=== PATIENT | female | born 1960 | race Caucasian/White ===

== ENCOUNTER → 2017-10-22 | Outpatient (CLI) | payer BC ==
--- NOTE | 2017-10-23 12:01 | EXERCISE STRESS ECHO ---
*NOTICE TO RECEIVING [employer] This information is strictly Confidential and protected under [place] law. [place] law prohibits you from making any further disclosure of this information unless further disclosure is expressly permitted by the written consent of the person to whom it pertains or is authorized by law. A general authorization for the release of medical or other information is not sufficient for this purpose. Hospital accepts no responsibility if the information is made available to any other person, INCLUDING THE PATIENT. Interpretation Summary * Name: LISA ROCK Study Date: 10/22/2017 10:03 AM BP: 146/61 mmHg * Patient Location: [facility] HR: 63 * : 1960 (M/d/yyyy) Gender: Female Height: 63 in * Age: 56 yrs Ethnicity: [place] Weight: 163 lb * Ordering Physician: William Sam * Referring Physician: William Sam * Performed By: Lottie Rubio RDCS * * Reason For Study: CHEST PAIN * BSA: 1.8 m2 * The study was technically adequate. * There is no comparison study available. * The stress echocardiogram is negative for inducible ischemia. * Exercise capacity is above average. * -- Conclusions -- * Ejection Fraction = 55-60%. * Resting wall motion: Normal. Stress wall motion: Appropriate increase in Left ventricular systolic function and decrease in cavity size. No stress induced segmental wall motion abnormalities. * There is trace mitral regurgitation. * There is trace tricuspid regurgitation. Procedure Details * ECHOEX, CPT #[id number] * ECHO DOPPLER, CPT #[id number] * ECHO COLOR FLOW, CPT #[id number] Left Ventricle * The left ventricle is normal in size. * There is normal left ventricular wall thickness. * Ejection Fraction = 55-60%. * Left ventricular systolic function is normal. * Resting wall motion: Normal. Stress wall motion: Appropriate increase in Left ventricular systolic function and decrease in cavity size. No stress induced segmental wall motion abnormalities. * The left ventricular ejection fraction increases normally with stress. The left ventricular end-systolic cavity size reduces post-stress (normal response). The left ventricular wall motion with stress is normal. Right Ventricle * The right ventricle is normal in size and function. Atria * The left atrial size is normal. * Right atrial size is normal. * No ASD detected; PFO is not assessed. Mitral Valve * The mitral valve is normal. * There is no mitral valve stenosis. * There is trace mitral regurgitation. Tricuspid Valve * The tricuspid valve is normal. * There is no tricuspid stenosis. * There is trace tricuspid regurgitation. Aortic Valve * The aortic valve is trileaflet. * No hemodynamically significant valvular aortic stenosis. * No aortic regurgitation is present. Pulmonic Valve * The pulmonic valve is not well visualized. Great Vessels * The aortic root is normal size. * Normal IVC. Pericardium * There is no pericardial effusion. Stress Parameters * The baseline ECG displays abnormal ST segments in the inferior leads. * Stress ECG: Equivocal inferior ST changes secondary to baseline abnormality. * The stress portion of this study was personally supervised by the undersigned interpreting physician. * Rest heart rate was '63' BPM. * Rest blood pressure was '146/61' * Maximum heart rate achieved was 164 bpm. * Maximum heart rate was 101 % of maximum age-predicted heart rate. * Maximum blood pressure was '176/90' * Total exercise time was '10:00' * Maximum exercise MET level achieved was '11.70' METS * Maximum treadmill speed was '4.20' miles per hour. * Maximum treadmill elevation was '16.00'% grade. * Exercise was terminated due to 'ACHIEVING TARGET HR' * Normal blood pressure response to exercise. Left Ventricular Diastolic Function * Pulse wave TDI of the anterior and posterior mitral annulas demonstrates normal LV relaxation MMode 2D Measurements and Calculations IVSd 0.91 cm IVSs 1.4 cm LVIDd 4.6 cm LVIDs 3.0 cm LVPWd 0.87 cm LVPWs 1.5 cm IVS/LVPW 1.0 FS 33.5 % EDV(Teich) 96.7 ml ESV(Teich) 36.4 ml EF(Teich) 62.3 % EDV(cubed) 96.5 ml ESV(cubed) 28.3 ml EF(cubed) 70.6 % % IVS thick 54.1 % % LVPW thick 68.6 % LV mass(C)d 135.8 grams LV mass(C)dI 76.6 grams/m\S\2 LV mass(C)s 150.7 grams LV mass(C)sI 85.0 grams/m\S\2 SV(Teich) 60.3 ml SI(Teich) 34.0 ml/m\S\2 SV(cubed) 68.2 ml SI(cubed) 38.4 ml/m\S\2 Ao root diam 3.0 cm Ao root area 7.3 cm\S\2 LA dimension 3.4 cm LA/Ao 1.1 LVAd ap4 28.0 cm\S\2 LVLd ap4 8.1 cm EDV(MOD-sp4) 80.0 ml EDV(sp4-el) 82.3 ml LVAs ap4 15.9 cm\S\2 LVLs ap4 6.7 cm ESV(MOD-sp4) 31.7 ml ESV(sp4-el) 31.7 ml EF(MOD-sp4) 60.3 % EF(sp4-el) 61.4 % LVAd ap2 28.5 cm\S\2 LVLd ap2 8.1 cm EDV(MOD-sp2) 81.8 ml EDV(sp2-el) 84.9 ml LVAs ap2 16.0 cm\S\2 LVLs ap2 7.0 cm ESV(MOD-sp2) 30.0 ml ESV(sp2-el) 30.7 ml EF(MOD-sp2) 63.4 % EF(sp2-el) 63.8 % LVLd %diff 0.21 % EDV(MOD-bp) 80.9 ml LVLs %diff 4.3 % ESV(MOD-bp) 31.7 ml EF(MOD-bp) 60.9 % SV(MOD-sp4) 48.2 ml SI(MOD-sp4) 27.2 ml/m\S\2 SV(MOD-sp2) 51.8 ml SI(MOD-sp2) 29.2 ml/m\S\2 SV(MOD-bp) 49.3 ml SI(MOD-bp) 27.8 ml/m\S\2 SV(sp4-el) 50.5 ml SI(sp4-el) 28.5 ml/m\S\2 SV(sp2-el) 54.2 ml SI(sp2-el) 30.6 ml/m\S\2 Doppler Measurements and Calculations MV E max shahriar 91.5 cm/sec MV A max shahriar 65.6 cm/sec MV E/A 1.4 MV dec time 0.23 sec Ao V2 max 134.9 cm/sec Ao max PG 7.3 mmHg Ao max PG (full) 2.8 mmHg LV V1 max PG 4.5 mmHg LV V1 max 106.2 cm/sec TR max shahriar 252.7 cm/sec
== END | disposition home or self-care (01) ==
LOC: C.CPL 09:57
PROVIDERS: ATTEND Internal Medicine Cardiovascular Disease
DX: Z01.810 Encounter for preprocedural cardiovascular examination (principal); R94.31 Abnormal electrocardiogram [ECG] [EKG]; E78.5 Hyperlipidemia, unspecified